=== PATIENT | female | born 1955 | race Caucasian/White ===

== ENCOUNTER 2016-12-22 18:58 | Emergency (ER) | payer BC, OTHER ==
[2016-12-22] MEDS ORDERED: Ibuprofen TAB* 600 MG PO ONE (20:53)
[2016-12-22 20:54] VITALS: BP 145/70
[2016-12-22] MEDS ORDERED: HYDROcodone/ACETAMIN 5-325 MG* 1 TAB PO ONE (21:41)
--- NOTE | 2016-12-22 21:42 | UC ---
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 - History of Current Complaint Chief Complaint: UCBackPain Stated Complaint: SHOULDER PAIN Time Seen by Provider: 12/22/16 21:29 Hx Obtained From: Patient ?: No Onset/Duration: Gradual Onset, Lasting Weeks, Still Present, Worse Since - past few days Timing: Constant Severity Initially: Moderate Severity Currently: Moderate Location Of Pain: Is Discrete @ Pain Intensity: 9 - tender to touch and reproducable with certian movements Pain Scale Used: 0-10 Numeric Character: Throbbing, Stiffness Aggravating Factor(s): Movement Alleviating Factor(s): Rest Associated Signs And Symptoms: Positive: Negative Related History: Dominant Hand Right - Allergies/Home Medications Allergies/Adverse Reactions: Allergies Allergy/AdvReac Type Severity Reaction Status Date / Time No Known Allergies Allergy Verified 12/22/16 19:19 PMH/Surg Hx/FS Hx/Imm Hx Previously Healthy: Yes - Surgical History Surgical History: Yes Surgery Procedure, Year, and Place: SURGERY FOR SKIN CA - Family History Known Family History: Positive: None - Social History Occupation: Employed Full-time Lives: With Family Alcohol Use: Occasionally Substance Use Type: None Smoking Status (MU): Never Smoked Tobacco Review of Systems Constitutional: Negative Skin: Negative Eyes: Negative ENT: Negative Respiratory: Negative Cardiovascular: Negative Gastrointestinal: Negative Genitourinary: Negative Motor: Negative Neurovascular: Negative Musculoskeletal: Arthralgia - leck shoulder/scapula, Myalgia - left shoulder/ scapula Neurological: Negative Psychological: Negative All Other Systems Reviewed And Are Negative: Yes Physical Exam Triage Information Reviewed: Yes Appearance: Well-Appearing, Well-Nourished, Pain Distress Vital Signs: Initial Vital Signs Temp 98 F 12/22/16 19:12 Pulse 80 12/22/16 19:12 Resp 16 12/22/16 19:12 BP 134/76 12/22/16 19:12 Pulse Ox 99 12/22/16 19:12 Vital Signs Reviewed: Yes Eye Exam: Normal Eyes: Positive: Conjunctiva Clear ENT Exam: Normal ENT: Positive: Normal ENT inspection, Hearing grossly normal. Negative: Nasal congestion, Nasal drainage, Trismus, Muffled/hoarse voice Dental Exam: Normal Neck exam: Normal Neck: Positive: Supple, Nontender Respiratory Exam: Normal Respiratory: Positive: Chest non-tender, Lungs clear, Normal breath sounds, No respiratory distress, No accessory muscle use Cardiovascular Exam: Normal Cardiovascular: Positive: RRR, No Murmur, Pulses Normal, Brisk Capillary Refill Musculoskeletal Exam: Normal Musculoskeletal: Positive: ROM Intact, No Edema, Strength Limited @ - left arm Neurological Exam: Normal Neurological: Positive: Alert, Muscle Tone Normal Psychological Exam: Normal Skin Exam: Normal Shoulder Course/Dx - Course Assessment/Plan: Physical therapy, pain monagement off work for 2 days - Differential Dx/Diagnosis Differential Diagnosis/HQI/PQRI: Arthritis, Rotator Cuff Injury, Sprain, Strain Provider Diagnoses: Repeative stress injury left shoulder Discharge - Discharge Plan Condition: Stable Disposition: HOME Prescriptions: Ibuprofen TAB* [Motrin TAB* 600 MG] 600 mg PO Q6H PRN #40 tab PRN Reason: Pain Patient Education Materials: Shoulder Pain (ED) Forms: *Work Release Referrals: Debra Quintero MD [Medical Doctor] - 2 Days
== END 2016-12-22 21:58 | disposition home or self-care (01) ==
LOC: UCEAST 18:58
DX: S49.92XA Unspecified injury of left shoulder and upper arm, initial encounter (principal); X50.3XXA Overexertion from repetitive movements, initial encounter; X50.1XXA Overexertion from prolonged static or awkward postures, initial encounter; Y93.F2 Activity, caregiving, lifting; Y92.129 Unspecified place in nursing home as the place of occurrence of the external cause; Y99.0 Civilian activity done for income or pay
CPT/HCPCS: 99202; A9270-GY; G0463